=== PATIENT | female | born 1995 | race African-American/Black ===

== ENCOUNTER → 2017-07-18 | Outpatient (CLI) | payer OTHER | END | disposition home or self-care (01) | LOC: RT 07:33 | PROVIDERS: ATTEND Physician Assistant Medical | DX: G47.19 Other hypersomnia (principal); E66.01 Morbid (severe) obesity due to excess calories; R06.83 Snoring; Z68.41 Body mass index [BMI] 40.0-44.9, adult | CPT/HCPCS: G0399 ==

== ENCOUNTER 2017-07-24 07:59 | Emergency (ER) | payer OTHER ==
[~2017-07-24] VITALS: Ht 175.3 cm; Wt 136.5 kg
--- NOTE | 2017-07-24 09:08 | RAD ---
PA and lateral views of the chest were obtained. History: Chest pain Comparison: none The heart and pulmonary vasculature appear within normal limits. The lungs are clear. The pleural margins are clear. Impression: No acute chest process is seen.
[2017-07-24 09:13] VITALS: BP 167/81
[2017-07-24] MEDS ORDERED: IBUP-1060 PO (09:23)
--- NOTE | 2017-07-24 09:23 | PHYS DOC ---
Past Medical History Past Medical History: Diabetes-Type II, Hypertension, Other Additional Past Medical Histor: pre DM Past Surgical History: Other Additional Past Surgical Histo: dental extraction Alcohol Use: Occasionally Drug Use: None Adult General Chief Complaint Chief Complaint: CHEST WALL PAIN HPI HPI Patient is a 22 year old female who presents ambulatory to the ED with the complaint of pain across the anterior chest wall which started yesterday and has been constant since it began yesterday. It is worsened by deep breaths and a cough. She has not really had a cough. Denies fever or chills. She is not short of breath. She states "I think it might be because I am too fat". She does wear a supportive bra. She denies taking any ibuprofen or anything else for the pain. She's never had this before. PCP none Review of Systems Review of Systems Constitutional: Denies fever or chills [] Respiratory: Denies cough or shortness of breath [] Cardiovascular: As in history of present illness : Denies Allergies Allergies Allergies Coded Allergies Type Severity Reaction Last Updated Verified No Known Drug Allergies 07/24/17 No Physical Exam Physical Exam Constitutional: Well developed, well nourished, no acute distress, non-toxic appearance. Alert, mentating normally, warm and dry. Pulse ox on room air 100%. Patient is resting comfortably on the cart reading something on her phone, laughing and talking with visitors. HENT: Normocephalic, atraumatic, bilateral external ears normal, nose normal. [ ] Eyes: conjunctiva normal, no discharge. [] Neck: Normal range of motion, no stridor. [] Cardiovascular:Heart rate regular rhythm, no murmur [] Lungs & Thorax: Bilateral breath sounds clear to auscultation , good air movement throughout, no wheezes Chest wall: Tenderness to palpation across the anterior chest wall, no skin color abnormalities, no skin lesions, no abnormality to inspection or palpation Skin: Warm, dry, no erythema, no rash. [] Extremities: No tenderness, no cyanosis, no clubbing, ROM intact, no edema. [] Neurologic: Alert and oriented X 3, normal motor function, no focal deficits noted. [] Current Patient Data Vital Signs Vital Signs Date Time Temp Pulse Resp B/P (MAP) Pulse Ox O2 Delivery O2 Flow Rate FiO2 07/24/17 09:13 80 18 167/81 (109) 97 Room Air 07/24/17 08:14 98.8 98.8 EKG EKG 12-lead EKG read by me. Sinus rhythm. Heart rate 80. There are no acute ST or T wave changes indicative of ischemia or infarction. No STEMI. Normal EKG. 0 817[] Radiology/Procedures Radiology/Procedures Two-view chest x-ray read by me. No acute findings.[] Course & Med Decision Making Course & Med Decision Making Pertinent Labs and Imaging studies reviewed. (See chart for details) 22-year-old female presents with pain across the anterior chest wall since yesterday. EKG is normal, chest x-ray is unremarkable. The pain appears to be superficial and reproducible, it appears to be musculoskeletal. I did discuss the importance of supportive undergarments. We will try ice and ibuprofen. See instructions for plan. [] Dragon Disclaimer Dragon Disclaimer This electronic medical record was generated, in whole or in part, using a voice recognition dictation system. Departure Departure Impression: Primary Impression: Anterior chest wall pain Disposition: HOME, SELF-CARE Condition: STABLE Referrals: SEAN SCHMID PA-C (PCP) Patient Instructions: Chest Wall Pain, [id number] Additional Instructions: Today, chest x-ray and EKG are normal. I believe your pain is caused by the muscles and ligaments of the chest wall. As we discussed, this can occur due to heavy breast tissue pulling on the ligaments. Be sure to wear a supportive bra. Use ice pack 15-20 minutes out of every 1-2 hours to the painful area. Take ibuprofen for pain as directed. Scripts Ibuprofen (IBUPROFEN) 800 Mg Tablet 800 MG PO PRN Q6HRS Y for PAIN, #30 TAB Prov: CLAY BUSTILLO MD 07/24/17 CLAY BUSTILLO MD Jul 24, 2017 09:23
--- NOTE | 2017-07-24 13:28 | EKG ---
[facility] [address] [place] [address] Test Date: 2017-07-24 Test Time: 08:17:15 Pat Name: ROSALBA VAZQUEZ Department: Room: Gender: F [employer]: : 1995 Requested By: CLAY BUSTILLO Order Number: [id number] Reading MD: Measurements Intervals [place] Rate: 80 P: 34 [place]: 168 QRS: -12 QRSD: 80 T: -3 QT: 384 QTc: 447 Interpretive Statements SINUS RHYTHM LEFTWARD AXIS QRS(T) CONTOUR ABNORMALITY CONSIDER ANTEROSEPTAL MYOCARDIAL DAMAGE POSSIBLY ABNORMAL ECG RI6.01 No previous ECG available for comparison
== END 2017-07-24 09:43 | disposition home or self-care (01) ==
LOC: ER 07:59
DX: R07.89 Other chest pain (principal); R05 Cough; E11.9 Type 2 diabetes mellitus without complications; I10 Essential (primary) hypertension
CPT/HCPCS: 71020; 93005; 99284-25

== ENCOUNTER 2017-09-23 21:47 | Emergency (ER) | payer OTHER ==
[2017-09-23] MEDS: DIPHTH,PERTUSS(ACELL),TET TOX 0.5 ML DISP.SYRIN. VAX IM ×2 (23:17)
== END 2017-09-23 23:20 | disposition home or self-care (01) ==
LOC: ER 21:47
DX: S60.222A Contusion of left hand, initial encounter (principal); E11.9 Type 2 diabetes mellitus without complications; I10 Essential (primary) hypertension; Y99.8 Other external cause status; Y08.89XA Assault by other specified means, initial encounter; Y99.0 Civilian activity done for income or pay; Y92.69 Other specified industrial and construction area as the place of occurrence of the external cause
CPT/HCPCS: 73130; 90471; 90715; 99284-25

== ENCOUNTER → 2021-12-14 | Outpatient (CLI) | payer OTHER ==
[2017-09-23 22:00] VITALS: BP 195/106
[~2021-12-14] MED LIST: IBUP-1060 PO
--- NOTE | 2021-12-14 14:29 | RAD ---
EXAM: CT head without contrast INDICATION: Acute posttraumatic headache COMPARISON: None TECHNIQUE: Axial CT imaging through the head without intravenous contrast. One or more of the following individualized dose reduction techniques were utilized for this examinat ion: 1. Automated exposure control 2. Adjustment of the mA and/or kV according to patient size 3. Use of iterative reconstruction technique. FINDINGS: The ventricles and sulci are normal. Olvera-white matter differentiation is maintained. There is no int racranial hemorrhage, acute infarct, or mass lesion. Basal cisterns are clear. The skull and scalp are intact. Paranasal sinuses and mastoid air cells are clear. Globes and orbits are intact. IMPRESSION: No acute intracranial abnormality. Electronically signed by: Marcella Soria MD (12/14/2021 2:26 PM) [facility]
== END ==
LOC: RAD 13:46
PROVIDERS: ATTEND Preventive Medicine Occupational Medicine
DX: G44.319 Acute post-traumatic headache, not intractable (principal)
CPT/HCPCS: 70450